=== PATIENT | female | born 1960 | race Caucasian/White ===

== ENCOUNTER → 2016-06-30 | Outpatient (CLI) | payer BC | LOC: FCPNEURO 21:30 | PROVIDERS: ATTEND Student in an Organized Health Care Education/Training Program | DX: G47.33 Obstructive sleep apnea (adult) (pediatric) (principal); G47.31 Primary central sleep apnea ==

== ENCOUNTER → 2016-09-27 | Outpatient (CLI) | payer BC | LOC: FIMAGING 10:20 | PROVIDERS: ATTEND Family Medicine | DX: R51 Headache (principal); R90.89 Other abnormal findings on diagnostic imaging of central nervous system ==

== ENCOUNTER → 2016-12-06 | Outpatient (CLI) | payer BC ==
--- NOTE | 2016-12-06 14:56 | CPEEG ---
[f rep st] ELECTROENCEPHALOGRAM DATE OF STUDY: 12/06/2016 INTERPRETATION: Normal EEG during wakefulness and sleep. There were no potentially epileptogenic a bnormalities present in the recording. REPORT: This EEG contains 10 Hz alpha activity over the posterior head regions. There was no abnor mal activation at rest, during photic stimulation, or hyperventilation. The patient became drowsy a nd fell asleep during the study. There was no abnormal activation during drowsiness, sleep, or duri ng times of arousal. /[id number]/MODL
== END ==
LOC: FCPNEURO 11:05
PROVIDERS: ATTEND Physician Assistant Medical
DX: Z87.820 Personal history of traumatic brain injury (principal); S06.0X0S Concussion without loss of consciousness, sequela; H55.89 Other irregular eye movements

== ENCOUNTER → 2018-02-27 | Outpatient (CLI) | payer OTHER | LOC: FIMAGING 10:28 | PROVIDERS: ATTEND Family Medicine | DX: Z12.31 Encounter for screening mammogram for malignant neoplasm of breast (principal) ==

== ENCOUNTER 2018-03-03 14:50 | Day surgery (SDC) | payer OTHER ==
[2018-03-03] MEDS ORDERED: LR 1,000 ML IV ONE (15:04)
--- NOTE | 2018-03-03 15:07 | PDANEPAE ---
ANE History of Present Illness H/O Stricture here for EGD ANE Past Medical History - Cardiovascular History Hx Hypertension: No Hx Arrhythmias: No Hx Chest Pain: No Hx Coronary Artery / Peripheral Vascular Disease: No Hx CHF / Valvular Disease: No Hx Palpitations: No - Pulmonary History Hx COPD: No Hx Asthma/Reactive Airway Disease: No Hx Recent Upper Respiratory Infection: No Hx Oxygen in Use at Home: No Hx Sleep Apnea: Yes Sleep Apnea Screening Result - Last Documented: Positive Pulmonary History Comment: PULMONARY NODULE, NO SX. PNA 05/2015 - Neurologic History Hx Cerebrovascular Accident: No Hx Seizures: No Hx Dementia: No Neurologic History Comment: CLOSED HEAD INJURY 09/2014. HEADACHES - Endocrine History Hx Diabetes: No Endocrine History Comment: THYROID NODULE - Renal History Hx Renal Disorders: No - Liver History Hx Hepatic Disorders: No - Neurological & Psychiatric Hx Hx Neurological and Psychiatric Disorders: No Neurological / Psychiatric History Comment: DEPRESSION - Cancer History Hx Cancer: No - Congenital Disorder History Hx Congenital Disorders: No - GI History Hx Gastrointestinal Disorders: Yes Gastrointestinal History Comment: DIFFICULTY SWALLOWING. GERD. N/V. ESOPHAGEAL ABNORMALITY - Other Health History Other Health History: ANEMIA. DVT LT LEG POST KNEE SURG - Chronic Pain History Chronic Pain: Yes (DIFFICULTY SWALLOWING) - Surgical History Prior Surgeries: RAY TOTAL KNEE. EGD WITH DILATION 01/30/2016. ESOPHAGEAL DILATION X 2. CHOLECYSTECTOMY 2014. B FEMUR SURG 1998. L HIP 1998. L ANKLE 1998. APPENDECTOMY 1985 ANE Review of Systems Review of Systems: - Exercise capacity METS (RN): 5 METS ANE Patient History - Allergies Allergies/Adverse Reactions: No Allergies [NKA] Allergy (Verified 12/25/17 17:01) - Home Medications Home Medications: DULoxetine [Cymbalta 60 MG (*)] 60 mg PO DAILY06 10/05/14 [Last Taken 01/30/16 07:15] lamoTRIgine [Lamictal] 400 mg PO DAILY06 10/05/14 [Last Taken 01/30/16 07:15] Tramadol HCl 50 - 100 mg PO Q8H PRN 05/04/15 [Last Taken 01/29/16] Omeprazole 40 mg PO BID 10/11/15 [Last Taken 01/30/16 07:15] ZOLPIDEM TARTRATE 10 mg PO PRN PRN 10/11/15 [Last Taken 01/29/16] Iron PO DAILY 12/27/15 [Last Taken 01/23/16] - NPO status NPO Status: no food or drink >8 hours - Anes Hx Anes Hx: no prior problems - Smoking Hx Smoking Status: Never smoked - Alcohol Use Alcohol Use: None - Family Anes Hx Family Anes Hx: none Family Hx Anesthesia Complications: NONE ANE Labs/Vital Signs - Vital Signs Height: 157.48 cm Weight: 72.575 kg ANE Physical Exam - Airway Neck exam: FROM Mallampati Score: Class 2 Mouth exam: normal dental/mouth exam - Pulmonary Pulmonary: no respiratory distress, clear to auscultation - Cardiovascular Cardiovascular: regular rate and rhythym, no murmur, rub, or gallop - ASA Status ASA Status: II ANE Anesthesia Plan Anesthesia Plan: GA with mask
[2018-03-03] MEDS ORDERED: PROPOFOL/EMULSION 500 MG/50 ML BOTTLE IV ONE (16:18)
[2018-03-03] MEDS ORDERED: INDOMETHACIN 50 MG SUPP PR PRN (16:38)
[2018-03-03] MEDS ORDERED: NALOXONE HCL 0.4 MG/ML INJ IVP PRN (16:38)
--- NOTE | 2018-03-03 16:38 | PDGENHP ---
History & Physical Chief Complaint: barretts History of Present Illness: 57 year old female presents for evaluation of barretts Pertinent Past, Social, Family History: PMHx: TBI, seizures, depression. Sughx : CCY, appy, ankle Relevant Physical Exam: HEENT: anicteric. Cv: RRR +s1s2. Lungs: CTAB. Abd: soft, nt, + bs Cardiorespiratory Assessment: ASA 2
--- NOTE | 2018-03-03 16:39 | POSTANESTH ---
Post Anesthetic Evaluation Cardiovascular Status: Normal, Stable, Similar to Pre-Op Cond Respiratory Status: Normal, Stable, Similar to Pre-op Cond. Level of Consciousness/Mental Status: Can Participate in Eval, Alert and Oriented Pain Control: Adequate, Prn Tx Ordered Nausea/Vomiting Control: Adequate, Prn Tx Ordered Complications Possibly Related to Anesthesia: None Noted
--- NOTE | 2018-03-03 16:44 | GIREPORT ---
[facility] - Endoscopy Department Patient Name: Lucinda Olvera Procedure Date: 03/03/2018 4:19 PM Patient Type: Outpatient Attending MD/ ER Physician: Gaetano Clay MD Procedure: Upper GI endoscopy Indications: Follow-up of Ward's esophagus Patient Profile: 57 year old female presents for follow up of Barretts esophagus. Providers: Gaetano Clay MD Medicines: Monitored Anesthesia Care Complications: No immediate complications. Estimated blood loss: Minimal. Description of Procedure: After obtaining informed consent, the endoscope was passed under direct vision. Throughout the procedure, the patient's blood pressure, pulse, and oxygen saturations were monitored continuously. The Endoscope was intro duced through the mouth, and advanced to the second part of duodenum. [facility] er GI endoscopy was accomplished without difficulty. The patient tolerated th e procedure well. Findings: There were esophageal mucosal changes consistent with long-segment Diana ett's esophagus present in the lower third of the esophagus. The maximum longitudinal extent of these mucosal changes was 3 cm in length. Mucosa was biopsied with a cold forceps for histology in 4 quadrants at intervals of 1 cm. A hiatal hernia was present. A few small sessile polyps were found on the greater curvature of the stomach. Biopsies were taken with a cold forceps for histology. The examined duodenum was normal. Estimated Blood Loss: Estimated blood loss was minimal. 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 Biopsied. - Hiatal hernia. - A few gastric polyps. Biopsied. - Normal examined duodenum. Recommendation: - Discharge patient to home (with escort). - Resume previous diet. - Continue present medications. - Await pathology results. - Repeat upper endoscopy for surveillance based on pathology results. - Thank you for allowing me to participate in the care of your patient. Attending Participation: I personally performed the entire procedure. Gaetano Clay MD Gaetano Clay MD 03/03/2018 4:44:14 PM This report has been signed electronicallyGaetaon Clay MD Number of Addenda: 0 Note Initiated On: 03/03/2018 4:19 PM [email or web address]
[2018-03-03] MEDS ORDERED: NS 500 ML IV SCH (16:45)
[2018-03-03 17:15] VITALS: BP 119/81
== END 2018-03-03 17:59 | disposition home or self-care (01) ==
LOC: FSGY 14:50
PROVIDERS: ATTEND Internal Medicine Gastroenterology
DX: K22.70 Barrett's esophagus without dysplasia (principal); K31.7 Polyp of stomach and duodenum; K44.9 Diaphragmatic hernia without obstruction or gangrene; Z86.718 Personal history of other venous thrombosis and embolism; Z87.820 Personal history of traumatic brain injury; Z96.653 Presence of artificial knee joint, bilateral
CPT/HCPCS: J2704